=== PATIENT | female | born 1975 | race Caucasian/White ===

== ENCOUNTER 2017-10-11 18:33 | Inpatient (IN) | payer MEDICAID, OTHER ==
[~2017-10-11] VITALS: Ht 152.4 cm; Wt 90.3 kg
[2017-10-11] MEDS ORDERED: BENZ0.5T44 PO (18:47)
[2017-10-11] MEDS ORDERED: RISP0.5T19 PO (18:47)
[2017-10-11] MEDS ORDERED: QUET25TA PO (18:47)
[2017-10-11 19:15] LABS: BASOPHILS % (AUTO) 0.6 % (0.0-2.0); EOSINOPHILS % (AUTO) 1.6 % (1.0-6.0); HEMATOCRIT 37.8 % (36-46); LYMPHOCYTES # (AUTO) 3.2 K/uL (1.0-4.8); LYMPHOCYTES % (AUTO) 38.3 % (22.0-44.0); MEAN CORPUSCULAR HEMOGLOBIN 28.7 pg (26.0-34.0); MEAN CORPUSCULAR HGB CONC 34.3 G/dL (31.0-37.0); MEAN CORPUSCULAR VOLUME 84 fL (80-100); MONOCYTES # (AUTO) 0.4 K/uL (0.1-1.0); MONOCYTES % (AUTO) 4.7 % (2.0-9.0); NEUTROPHILS # (AUTO) 4.5 K/uL (1.8-7.7); NEUTROPHILS % (AUTO) 54.8 % (40.0-70.0); PLATELET COUNT (AUTO) 434 K/uL (150-450); RED BLOOD CELL COUNT(AUTO) 4.52 MIL/uL (4.00-5.20); RED CELL DISTRIBUTION WIDTH 13.5 % (11.5-14.5)
[2017-10-11 19:29] LABS: AMPHET/METH SCREEN,URINE NEGATIVE (NEGATIVE); BARBITURATE SCREEN, URINE NEGATIVE (NEGATIVE); BENZODIAZEPINES SCREEN,URINE NEGATIVE (NEGATIVE); CANNABINOID SCREEN,URINE NEGATIVE (NEGATIVE); COCAINE SCREEN,URINE NEGATIVE (NEGATIVE); METHADONE SCREEN, URINE NEGATIVE (NEGATIVE); OPIATE SCREEN,URINE NEGATIVE (NEGATIVE)
[2017-10-11 19:34] LABS: ANION GAP 10 mmol/L (8-16); CALCIUM, TOTAL 8.8 mg/dL (8.8-10.5); CARBON DIOXIDE 27 mmol/L (22-29); CHLORIDE 100 mmol/L (98-107); CREATININE 0.82 mg/dL (0.60-1.30); GLOMERULAR FILTR. RATE CALC > 60 mL/min (>60); GLUCOSE,RANDOM 125 mg/dL (70-110); POTASSIUM 3.2 mmol/L (3.5-5.1); SODIUM SERUM 137 mmol/L (136-145); UREA NITROGEN, BLOOD 14 mg/dL (7-18)
[2017-10-11 19:35] LABS: PHENCYCLIDINE SCREEN,URINE NEGATIVE (NEGATIVE)
[2017-10-11 19:40] LABS: ALANINE AMINOTRANSFERASE 36 U/L (12-78); ALBUMIN 3.9 g/dL (3.4-5.0); ALKALINE PHOSPHATASE 173 U/L (46-116); ASPARTATE AMINOTRANSFERASE 16 U/L (15-37); BILIRUBIN,TOTAL 0.2 mg/dL (0.1-1.0); TOTAL PROTEIN, SERUM 8.2 g/dL (6.4-8.2)
[2017-10-11] MEDS ORDERED: POTASSIUM CHLORIDE 20 MEQ ER TABLET PO ONE (20:30)
[2017-10-11] MEDS ORDERED: HALOPERIDOL 5 MG TABLET PO PRN (22:15)
[2017-10-12 00:19] VITALS: BP 134/86
[2017-10-12 00:47] VITALS: BP 149/94
[2017-10-12] MEDS: ZOLPIDEM TARTRATE 10 MG TABLET PO PRN (01:11)
[2017-10-12] MEDS: LORazepam 2 MG TABLET PO PRN ×3 (01:11→21:09)
[2017-10-12 08:17] VITALS: BP 131/66
[2017-10-12 16:23] VITALS: BP 130/67
[2017-10-12] MEDS: QUEtiapine FUMARATE 300 MG TABLET PO SCH (21:08)
[2017-10-13 05:21] VITALS: BP 132/82
[2017-10-13 08:06] VITALS: BP 114/64
[2017-10-13 16:00] VITALS: BP 120/70
[2017-10-13] MEDS: ZOLPIDEM TARTRATE 10 MG TABLET PO PRN (20:37)
[2017-10-13] MEDS: QUEtiapine FUMARATE 300 MG TABLET PO SCH (20:37)
[2017-10-14] MEDS: ATORVASTATIN CALCIUM 20 MG TABLET PO SCH (08:04)
[2017-10-14 08:52] VITALS: BP 111/63
[2017-10-14 16:11] VITALS: BP 119/68
[2017-10-14] MEDS: LORazepam 2 MG TABLET PO PRN (16:25)
[2017-10-14] MEDS: ZOLPIDEM TARTRATE 10 MG TABLET PO PRN (20:48)
[2017-10-14] MEDS: QUEtiapine FUMARATE 300 MG TABLET PO SCH (21:00)
[2017-10-15 03:49] VITALS: BP 122/72
[2017-10-15] MEDS: ATORVASTATIN CALCIUM 20 MG TABLET PO SCH (09:30)
[2017-10-15] MEDS: LORazepam 2 MG TABLET PO PRN ×2 (09:34→16:44)
[2017-10-15 16:12] VITALS: BP 101/57
[2017-10-15 19:49] VITALS: BP 110/63
[2017-10-15] MEDS: QUEtiapine FUMARATE 300 MG TABLET PO SCH (20:42)
[2017-10-15] MEDS: ZOLPIDEM TARTRATE 10 MG TABLET PO PRN (20:42)
[2017-10-16 05:48] VITALS: BP 100/63
[2017-10-16] MEDS: ATORVASTATIN CALCIUM 20 MG TABLET PO SCH (08:27)
[2017-10-16] MEDS: LORazepam 2 MG TABLET PO PRN ×2 (08:27→17:06)
[2017-10-16 08:30] VITALS: BP 114/61
[2017-10-16 16:17] VITALS: BP 114/64
[2017-10-16] MEDS ORDERED: QUEtiapine FUMARATE 200 MG TABLET PO SCH (21:00)
[2017-10-16] MEDS: ZOLPIDEM TARTRATE 10 MG TABLET PO PRN (21:14)
[2017-10-17 07:16] VITALS: BP 110/72
[2017-10-17 08:26] VITALS: BP 104/61
[2017-10-17 08:32] LABS: ALANINE AMINOTRANSFERASE 24 U/L (12-78); ALBUMIN 3.1 g/dL (3.4-5.0); ALKALINE PHOSPHATASE 134 U/L (46-116); ANION GAP 7 mmol/L (8-16); ASPARTATE AMINOTRANSFERASE 12 U/L (15-37); BILIRUBIN,TOTAL 0.4 mg/dL (0.1-1.0); CALCIUM, TOTAL 8.4 mg/dL (8.8-10.5); CARBON DIOXIDE 29 mmol/L (22-29); CHLORIDE 105 mmol/L (98-107); GLOMERULAR FILTR. RATE CALC > 60 mL/min (>60); GLUCOSE,RANDOM 89 mg/dL (70-110); SODIUM SERUM 141 mmol/L (136-145); UREA NITROGEN, BLOOD 16 mg/dL (7-18)
[2017-10-17] MEDS: ATORVASTATIN CALCIUM 20 MG TABLET PO SCH (08:35)
[2017-10-17] MEDS: LORazepam 2 MG TABLET PO PRN (08:35)
[2017-10-17 16:03] VITALS: BP 136/84
[2017-10-17] MEDS ORDERED: ATOR20TA86 PO (16:42)
[2017-10-17] MEDS ORDERED: QUET200T PO (16:42)
== END 2017-10-17 21:26 | disposition home or self-care (01) | DRG 750 ==
LOC: EMS 18:34 → B2X 22:23 → B3A 23:50
DX: F20.0 Paranoid schizophrenia (principal); F79 Unspecified intellectual disabilities; E78.5 Hyperlipidemia, unspecified; Z59.0 Homelessness; Z79.899 Other long term (current) drug therapy
CPT/HCPCS: 99285; G0480

== ENCOUNTER 2019-12-29 17:07 | Emergency (ER) | payer OTHER ==
[~2019-12-29] VITALS: Ht 167.6 cm; Wt 72.9 kg
[~2019-12-29 17:07] MED LIST: ACET-3207 PO; ATOR20TA86 PO; FERR-89 PO; QUET200T PO
[2019-12-29 19:09] VITALS: BP 127/83
== END 2019-12-29 20:41 | disposition home or self-care (01) ==
LOC: EMS 17:09
DX: F20.9 Schizophrenia, unspecified (principal)
CPT/HCPCS: Z7502